=== PATIENT | female | born 1945 | race Caucasian/White ===

== ENCOUNTER 2017-06-27 09:56 | Day surgery (SDC) | payer MEDICARE, OTHER ==
[2017-06-26 13:48] VITALS: BMI 29.4
[2017-06-27] MEDS ORDERED: Lidocaine 1% PF 5 ML VIAL ONE (13:10)
[2017-06-27] MEDS ORDERED: Propofol 200 MG/20 ML VIAL ONE ×2 (13:10)
--- NOTE | 2017-06-27 16:03 | OP ---
DATE OF PROCEDURE: 06/27/2017 PROCEDURE: Colonoscopy with snare polypectomy. PREOPERATIVE DIAGNOSIS: Excision of known colon polyp. PREOPERATIVE NOTE: Ms. Dobbs had colonoscopy performed on 05/17/2017 in [place]. She had a larg e flat polyp in the cecum which could not be removed at that time. Biopsies showed adenomatous farrell es. With the original procedure, the polyp did not rise well with saline and the snare did slid over the top of the polyp. Three other adenomas were removed. The colon prep was poor at that time. PROCEDURE IN DETAIL: Informed consent was obtained from the patient. She was sedated with total int ravenous anesthesia. The colonoscope was advanced to the cecum where the ileocecal valve and appendi ceal orifice were clearly identified. The preparation quality was good and again large 2 cm flat fabiana yp was identified in the cecum lateral to the ileocecal valve. This was injected submucosally with s enrrique; however, again the polyp did not raise well. A hexagonal snare was then used to grasp the fabiana yp and the distal two-thirds of the polyp were removed with snare cautery polypectomy. A transition was made to a small oval snare and the remainder of the polyp was removed piecemeal with snare cauter y polypectomy. The polyp edges were then cauterized with argon plasma coagulation. Good hemostasis was confirmed. The polyp appears to be completely resected endoscopically. Three polyps measuring 6 mm were removed from the transverse colon by snare cautery polypectomy. There was moderate divertic ulosis of the transverse, descending and sigmoid colon. Retroflex views in the rectum were unremarka ble. IMPRESSION: 1. Large 2 cm polyp removed from the cecum by snare cautery polypectomy in piecemeal. The edges wer e treated with argon plasma coagulation. 2. Three additional adenomas were removed from the transverse colon. 3. Moderate diverticulosis of the transverse, descending and sigmoid colon. 4. Six other adenomas were removed in 05/2017. The preparation quality was fair to poor at that shwetha e. RECOMMENDATIONS: 1. Repeat colonoscopy in 6 months to evaluate the polypectomy base of a large polyp. 2. The patient does not fit strict criteria for hereditary nonpolyposis colon cancer, but considerin g her large precancerous polyps and that her mother had colon cancer and uterine cancer, genetic test ing could be considered. Medicare will not pay for this and it would have to be out of pocket testin g. If she did test positive for gene mutation, then the next generation could be tested for that gen e as well. If genetic testing is not done and followup colonoscopy is negative in 6 months, then fur ther surveillance will be determined based on those findings.
== END 2017-06-27 14:39 | disposition home or self-care (01) ==
LOC: SDC 09:56
PROVIDERS: ATTEND Internal Medicine Gastroenterology
PROC: 0DBH8ZX Excision of Cecum, Via Natural or Artificial Opening Endoscopic, Diagnostic (ICD-10-PCS; principal; 2017-06-27)
PROC: 0DBL8ZX Excision of Transverse Colon, Via Natural or Artificial Opening Endoscopic, Diagnostic (ICD-10-PCS; 2017-06-27)
DX: Z12.11 Encounter for screening for malignant neoplasm of colon (principal); D12.0 Benign neoplasm of cecum; D12.3 Benign neoplasm of transverse colon; E11.9 Type 2 diabetes mellitus without complications; K57.30 Diverticulosis of large intestine without perforation or abscess without bleeding; I10 Essential (primary) hypertension; E03.9 Hypothyroidism, unspecified; Z79.899 Other long term (current) drug therapy; Z90.49 Acquired absence of other specified parts of digestive tract; Z90.710 Acquired absence of both cervix and uterus; Z98.890 Other specified postprocedural states; Z86.010 Personal history of colon polyps; Z80.0 Family history of malignant neoplasm of digestive organs
CPT/HCPCS: 88305; J2001; J2704